=== PATIENT | female | born 1970 | race Caucasian/White ===

== ENCOUNTER → 2022-03-17 | Outpatient (CLI) | LOC: M SOG 08:19 | PROVIDERS: ATTEND Orthopaedic Surgery | DX: M25.511 Pain in right shoulder (principal) ==

== ENCOUNTER → 2022-05-11 | Outpatient (CLI) | payer OTHER ==
[~2022-05-11] MED LIST: ISOVUE-300 61% 50ML VIAL As Ordered ONE; LIDOCAINE 1% MDV 20ML VIAL As Ordered ONE; PROHANCE 279.3MG/ML 5ML VIAL As Ordered ONE
== END ==
LOC: M RADPRO 08:33
PROVIDERS: ATTEND Orthopaedic Surgery
DX: M67.813 Other specified disorders of tendon, right shoulder (principal); S43.431A Superior glenoid labrum lesion of right shoulder, initial encounter
CPT/HCPCS: 23350; 73223; 77002; A9576

== ENCOUNTER 2022-11-28 09:37 | Day surgery (SDC) | payer OTHER ==
[~2022-11-28] VITALS: Ht 160 cm; Wt 77.4 kg
[~2022-11-28 09:37] MED LIST changes: +AZEL23SP; +CLAR10CA3 PO; +EPINEPHrine INJ 1 MG/ML 1ML AMP PN ONE; +HYDR200T46 PO; -ISOVUE-300 61% 50ML VIAL As Ordered ONE; -LIDOCAINE 1% MDV 20ML VIAL As Ordered ONE; +LIDOCAINE 1% SDV 5ML VIAL PN ONE; +LOSA25TA13 PO; -PROHANCE 279.3MG/ML 5ML VIAL As Ordered ONE; +ROPIvacaine 0.5% 30ML VIAL PN ONE; +TRANEXAMIC ACID 100 MG/ML 10ML VIAL IV ONE; +ceFAZolin SOD 2 GM in IV 1 EA IV ONE; +dexAMETHasone 10MG/1ML VIAL PRES.FREE PN ONE
[2022-11-28] MEDS ORDERED: LR 1,000 ML IV SCH ×2 (09:45→13:45)
[2022-11-28] MEDS ORDERED: LIDOCAINE 2% 100MG/5ML SDV (FOR ANES.) As Ordered ONE (11:12)
[2022-11-28] MEDS ORDERED: propofoL 200 MG/20 ML VIAL As Ordered ONE (11:12)
[2022-11-28] MEDS ORDERED: ROCURONIUM BROMIDE 50MG/5ML VIAL As Ordered ONE (11:12)
[2022-11-28] MEDS ORDERED: EPINEPHrine 1MG/ML INJ 30ML MD-VIAL As Ordered ONE (11:13)
[2022-11-28] MEDS ORDERED: fentaNYL 100 MCG/2 ML INJECTION As Ordered ONE (11:15)
[2022-11-28] MEDS: MIDAZOLAM INJ 2MG/2ML VIAL IV PRN ×2 (11:19→11:44)
[2022-11-28] MEDS: fentaNYL 100 MCG/2 ML INJECTION IV PRN ×2 (11:19→11:44)
[2022-11-28] MEDS ORDERED: PHENYLephrine 500MCG 5ML (100MCG/ML) SYRINGE As Ordered ONE ×2 (12:06→13:09)
[2022-11-28] MEDS ORDERED: TRANEXAMIC ACID 100 MG/ML 10ML VIAL As Ordered ONE (12:07)
[2022-11-28] MEDS ORDERED: ONDANSETRON 4MG 2ML VIAL As Ordered ONE (12:10)
[2022-11-28] MEDS ORDERED: ePHEDrine SULFATE 25 MG/5 ML(5MG/ML) SYRINGE As Ordered ONE (13:13)
[2022-11-28] MEDS ORDERED: SUGAMMADEX SODIUM 500 MG/5 ML VIAL (BRIDION) As Ordered ONE (13:19)
[2022-11-28] MEDS ORDERED: ESMOLOL INJ 100MG/10ML VIAL As Ordered ONE (13:24)
[2022-11-28] MEDS ORDERED: oxyCODONE 5MG TAB PO PRN (13:45)
[2022-11-28] MEDS ORDERED: fentaNYL 100 MCG/2 ML INJECTION IV PRN (13:45)
[2022-11-28] MEDS ORDERED: ONDANSETRON 4MG 2ML VIAL IV PRN (13:45)
[2022-11-28] MEDS ORDERED: PERC5TAB12 PO (13:53)
[2022-11-28] MEDS ORDERED: ECOT81TA5 PO (13:53)
[2022-11-28 15:40] VITALS: BP 151/92; TEMP 97.1; O2SAT 18
== END 2022-11-28 15:40 | disposition home or self-care (01) ==
LOC: M SDC 09:37
PROVIDERS: ATTEND Orthopaedic Surgery
DX: M75.31 Calcific tendinitis of right shoulder (principal); S43.431A Superior glenoid labrum lesion of right shoulder, initial encounter; I10 Essential (primary) hypertension; I73.9 Peripheral vascular disease, unspecified; M32.9 Systemic lupus erythematosus, unspecified; R42 Dizziness and giddiness; Z88.1 Allergy status to other antibiotic agents; Z79.899 Other long term (current) drug therapy
CPT/HCPCS: 29823; 29826; 29828; 64415; C1713; J0171; J0690; J1100; J1805; J2250; J2371; J2405; J2795; J3010

== ENCOUNTER → 2023-01-25 | Outpatient (CLI) | payer OTHER ==
[~2023-01-25] MED LIST changes: +ECOT81TA5 PO; -EPINEPHrine INJ 1 MG/ML 1ML AMP PN ONE; -LIDOCAINE 1% SDV 5ML VIAL PN ONE; +PERC5TAB12 PO; -ROPIvacaine 0.5% 30ML VIAL PN ONE; -TRANEXAMIC ACID 100 MG/ML 10ML VIAL IV ONE; -ceFAZolin SOD 2 GM in IV 1 EA IV ONE; -dexAMETHasone 10MG/1ML VIAL PRES.FREE PN ONE
== END ==
LOC: M SOG 15:20
PROVIDERS: ATTEND Orthopaedic Surgery
DX: S43.431D Superior glenoid labrum lesion of right shoulder, subsequent encounter (principal); Y93.9 Activity, unspecified; Y92.9 Unspecified place or not applicable

== ENCOUNTER → 2024-05-26 | Outpatient (CLI) | payer OTHER | LOC: M SOG 07:50 | PROVIDERS: ATTEND Orthopaedic Surgery | DX: M25.511 Pain in right shoulder (principal) ==

== ENCOUNTER → 2024-06-30 | Outpatient (CLI) | payer OTHER | LOC: M PLAIMG 10:10 | PROVIDERS: ATTEND Orthopaedic Surgery | DX: M62.121 Other rupture of muscle (nontraumatic), right upper arm (principal); M75.81 Other shoulder lesions, right shoulder; S43.431D Superior glenoid labrum lesion of right shoulder, subsequent encounter ==